=== PATIENT | female | born 1940 | race Caucasian/White ===

== ENCOUNTER 2020-05-08 15:15 | Emergency (ER) | payer MEDICARE, OTHER ==
[~2020-05-08 15:15] MED LIST: NAPROSYN500 MG PO
[2020-05-08 17:10] LABS: HEMOGLOBIN 12.4 gm/dl (12.3-15.3); RED BLOOD COUNT 4.19 M/UL (4.00-5.10); WHITE BLOOD COUNT 7.2 K/UL (4.5-11.0)
[2020-05-08 17:27] LABS: BUN/CREATININE RATIO 26 (0-10)
== END 2020-05-08 18:02 | disposition home or self-care (01) ==
LOC: ER1 15:15
PROVIDERS: Emergency Medicine
DX: I10 Essential (primary) hypertension (principal)
CPT/HCPCS: 36415; 71045; 80053; 82550; 82553; 83874; 84484; 85025; 93005; 99284

== ENCOUNTER → 2020-10-27 | Outpatient (CLI) | payer MEDICARE | LOC: EXRD 09-29 10:30 | DX: Z78.0 Asymptomatic menopausal state (principal); M85.852 Other specified disorders of bone density and structure, left thigh | CPT/HCPCS: 77080 ==

== ENCOUNTER → 2021-03-23 | Outpatient (CLI) | payer MEDICARE | LOC: KOH-I 15:51 | DX: M25.561 Pain in right knee (principal); M17.11 Unilateral primary osteoarthritis, right knee | CPT/HCPCS: 73562 ==

== ENCOUNTER → 2021-05-06 | Outpatient (CLI) | payer MEDICARE | LOC: RAD 03-18 08:00 | DX: R13.10 Dysphagia, unspecified (principal); K22.2 Esophageal obstruction; K44.9 Diaphragmatic hernia without obstruction or gangrene | CPT/HCPCS: 74221 ==